=== PATIENT | male | born 1975 | race African-American/Black ===

== ENCOUNTER 2017-01-29 02:23 | Emergency (ER) | payer MEDICARE, MEDICAID ==
[~2017-01-29] VITALS: Ht 177.8 cm; Wt 68.0 kg
[2017-01-29 02:27] VITALS: BP 125/85
== END 2017-01-29 02:52 | disposition left against medical advice (07) ==
LOC: ER 02:35
DX: Z53.21 Procedure and treatment not carried out due to patient leaving prior to being seen by health care provider (principal)

== ENCOUNTER 2018-09-11 18:23 | Emergency (ER) | payer MEDICARE, MEDICAID ==
[~2018-09-11] VITALS: Ht 177.8 cm; Wt 73.0 kg
[2018-09-11] MEDS ORDERED: LITH150C PO (18:35)
[2018-09-11] MEDS ORDERED: OLAN10TA3 PO (18:35)
[2018-09-11] MEDS ORDERED: KETOROLAC 30MG/ML VIAL IV STA (22:16)
[2018-09-12 00:35] LABS: BASOPHILS % 1.2 % (0.0-2.0); EOSINOPHILS % 4.8 % (0.0-5.0); HEMATOCRIT. 40.3 % (42.0-52.0); HEMOGLOBIN. 13.4 g/dL (14.0-18.0); LYMPHOCYTES % 40.4 % (20.0-50.0); MEAN CORPUSCULAR HEMOGLOBIN 34.4 pg (28.0-32.0); MEAN CORPUSCULAR VOLUME 103.1 fL (80.0-94.0); MEAN PLATELET VOLUME 9.1 fl (7.4-10.4); MONOCYTES % 9.8 % (2.0-8.0); NEUTROPHILS % 43.8 % (40.0-76.0); PLATELET 185 x1000/uL (130-400); RED BLOOD CELL COUNT 3.91 mill/uL (4.7-6.1); RED CELL DISTRIBUTION WIDTH 13.2 % (11.6-14.6)
[2018-09-12 00:48] LABS: CHLORIDE 106 mEq/L (98-107)
[2018-09-12 00:50] LABS: PROTHROMBIN TIME 10.2 sec (9.1-11.1)
[2018-09-12 01:32] VITALS: BP 127/87
[2018-09-12 01:33] LABS: *AMPHETAMINES SCREEN URINE PRESUMTIVE POSITIVE (NEGATIVE); *BARBITURATES SCREEN URINE NEGATIVE (NEGATIVE); *BENZODIAZEPINES SCREEN URINE NEGATIVE (NEGATIVE); *COCAINE SCREEN URINE NEGATIVE (NEGATIVE); CANNABINOID URINE SCREEN PRESUMTIVE POSITIVE (NEGATIVE); METHADONE URINE SCREEN NEGATIVE (NEGATIVE); OPIATES URINE SCREEN NEGATIVE (NEGATIVE); PHENCYCLIDINE URINE SCREEN PRESUMTIVE POSITIVE (NEGATIVE)
== END 2018-09-12 01:46 | disposition home or self-care (01) ==
LOC: ER 18:23
DX: M79.89 Other specified soft tissue disorders (principal); M79.605 Pain in left leg; M79.604 Pain in right leg; R06.02 Shortness of breath; R03.0 Elevated blood-pressure reading, without diagnosis of hypertension; F17.210 Nicotine dependence, cigarettes, uncomplicated
CPT/HCPCS: 36415; 71045; 80048; 80305; 83880; 84484; 85025; 85610; 93005; 93970; 96374; 99285; J1885

== ENCOUNTER 2019-03-20 20:56 | Emergency (ER) | payer MEDICARE, MEDICAID ==
[~2019-03-20] VITALS: Ht 182.9 cm; Wt 71.0 kg
[~2019-03-20 20:56] MED LIST: LITH150C PO; OLAN10TA3 PO
[2019-03-20] MEDS ORDERED: DIPHENHYDRAMINE 50MG/ML VIAL IM STA (21:27)
[2019-03-20] MEDS ORDERED: LORAZEPAM 2MG/ML CPJ IM STA (21:27)
[2019-03-20] MEDS ORDERED: HALOPERIDOL LACTATE 5MG/ML VIAL IM STA (21:27)
[2019-03-20 22:44] LABS: HEMATOCRIT. 36.6 % (42.0-52.0); HEMOGLOBIN. 12.3 g/dL (14.0-18.0); MEAN CORPUSCULAR HEMOGLOBIN 34.8 pg (28.0-32.0); MEAN CORPUSCULAR VOLUME 103.4 fL (80.0-94.0); MEAN PLATELET VOLUME 8.6 fl (7.4-10.4); PLATELET 164 x1000/uL (130-400); RED BLOOD CELL COUNT 3.54 mill/uL (4.7-6.1); RED CELL DISTRIBUTION WIDTH 12.8 % (11.6-14.6)
[2019-03-20 22:49] LABS: CHLORIDE 109 mEq/L (98-107)
[2019-03-20 22:53] LABS: ETHANOL BLOOD < 10 mg/dL
[2019-03-20 23:00] LABS: PLATELET ESTIMATE NORMAL
[2019-03-20 23:25] LABS: CLARITY URINE CLEAR (CLEAR); COLOR URINE YELLOW (YELLOW); KETONES URINE 1+ (NEGATIVE); LEUKOCYTE ESTERASE URINE TRACE (NEGATIVE); NITRITE URINE NEGATIVE (NEGATIVE); OCCULT BLOOD URINE 1+ (NEGATIVE); PH URINE 5.5 (4.5-8.0); PROTEIN URINE TRACE (NEGATIVE); SPECIFIC GRAVITY URINE 1.032 (1.005-1.030)
[2019-03-20] MEDS ORDERED: CEFTRIAXONE 1 G PREMIX 50 ML IV ONE (23:45)
[2019-03-20 23:46] LABS: *AMPHETAMINES SCREEN URINE PRESUMTIVE POSITIVE (NEGATIVE); *BARBITURATES SCREEN URINE NEGATIVE (NEGATIVE); *BENZODIAZEPINES SCREEN URINE PRESUMTIVE POSITIVE (NEGATIVE); *COCAINE SCREEN URINE NEGATIVE (NEGATIVE); METHADONE URINE SCREEN NEGATIVE (NEGATIVE)
[2019-03-20 23:47] LABS: CANNABINOID URINE SCREEN NEGATIVE (NEGATIVE); OPIATES URINE SCREEN NEGATIVE (NEGATIVE); PHENCYCLIDINE URINE SCREEN NEGATIVE (NEGATIVE)
[2019-03-21 09:54] VITALS: BP 116/75
== END 2019-03-21 09:59 | disposition home or self-care (01) ==
LOC: ER 21:12
DX: R45.6 Violent behavior (principal); F15.129 Other stimulant abuse with intoxication, unspecified; N39.0 Urinary tract infection, site not specified; Z78.1 Physical restraint status
CPT/HCPCS: 36415; 80053; 80305; 80307; 80320; 80329; 81003; 85025; 93005; 96365; 96372; 99284; J0696; J1200; J1630; J2060; G0480

== ENCOUNTER 2019-03-23 15:30 | Emergency (ER) | payer MEDICARE, MEDICAID ==
[~2019-03-23] VITALS: Ht 172.7 cm; Wt 75.0 kg
[2019-03-23 17:13] LABS: BASOPHILS % 0.5 % (0.0-2.0); EOSINOPHILS % 0.7 % (0.0-5.0); HEMATOCRIT. 38.9 % (42.0-52.0); HEMOGLOBIN. 13.1 g/dL (14.0-18.0); LYMPHOCYTES % 15.8 % (20.0-50.0); MEAN CORPUSCULAR HEMOGLOBIN 34.7 pg (28.0-32.0); MEAN CORPUSCULAR VOLUME 103.3 fL (80.0-94.0); MEAN PLATELET VOLUME 9.6 fl (7.4-10.4); MONOCYTES % 11.9 % (2.0-8.0); NEUTROPHILS % 71.1 % (40.0-76.0); PLATELET 133 x1000/uL (130-400); RED BLOOD CELL COUNT 3.77 mill/uL (4.7-6.1); RED CELL DISTRIBUTION WIDTH 13.1 % (11.6-14.6)
[2019-03-23 17:18] LABS: CHLORIDE 107 mEq/L (98-107)
[2019-03-23 17:22] LABS: ETHANOL BLOOD < 10 mg/dL
[2019-03-23] MEDS ORDERED: HALOPERIDOL LACTATE 5MG/ML VIAL IM ONE (18:00)
[2019-03-23] MEDS ORDERED: OLANZAPINE 10 MG/VIAL IM ONE (21:15)
[2019-03-23 22:12] LABS: CREATINE KINASE 1597 IU/L (39-308)
[2019-03-23 22:15] LABS: CLARITY URINE CLEAR (CLEAR); COLOR URINE DARK YELLOW (YELLOW); KETONES URINE TRACE (NEGATIVE); LEUKOCYTE ESTERASE URINE 1+ (NEGATIVE); NITRITE URINE NEGATIVE (NEGATIVE); OCCULT BLOOD URINE NEGATIVE (NEGATIVE); PROTEIN URINE 1+ (NEGATIVE); SPECIFIC GRAVITY URINE 1.029 (1.005-1.030)
[2019-03-23 22:31] LABS: *AMPHETAMINES SCREEN URINE PRESUMTIVE POSITIVE (NEGATIVE); *BARBITURATES SCREEN URINE NEGATIVE (NEGATIVE)
[2019-03-23 22:32] LABS: *BENZODIAZEPINES SCREEN URINE PRESUMTIVE POSITIVE (NEGATIVE); *COCAINE SCREEN URINE NEGATIVE (NEGATIVE); CANNABINOID URINE SCREEN PRESUMTIVE POSITIVE (NEGATIVE); METHADONE URINE SCREEN NEGATIVE (NEGATIVE); OPIATES URINE SCREEN NEGATIVE (NEGATIVE); PHENCYCLIDINE URINE SCREEN NEGATIVE (NEGATIVE)
[2019-03-24] MEDS ORDERED: HALOPERIDOL LACTATE 5MG/ML VIAL IM ONE (18:15)
[2019-03-24] MEDS ORDERED: OLANZAPINE 10 MG/VIAL IM ONE (21:00)
[2019-03-25] MEDS ORDERED: LORAZEPAM 2MG/ML CPJ IM STA (12:31)
[2019-03-25] MEDS ORDERED: ZIPRASIDONE MESYLATE 20MG/VIAL IM STA (12:31)
[2019-03-25 15:49] VITALS: BP 138/88
== END 2019-03-25 16:45 ==
LOC: ER 15:30
DX: R45.1 Restlessness and agitation (principal); F91.8 Other conduct disorders; Z78.1 Physical restraint status
CPT/HCPCS: 36415; 80053; 80305; 80307; 80320; 80329; 81003; 82550; 85025; 96372; 99284; J1630; J2060; J3486; J3490; G0480